=== PATIENT | female | born 1980 | race Caucasian/White ===

== ENCOUNTER → 2023-09-05 | Outpatient (CLI) | payer OTHER ==
[~2023-09-05] MED LIST: LEXA1TAB PO; OMEP-173 PO; SYNT50TA PO
== END ==
LOC: M WHC 08:39
PROVIDERS: ATTEND Plastic Surgery Surgery of the Hand
DX: Z12.31 Encounter for screening mammogram for malignant neoplasm of breast (principal); Q83.1 Accessory breast
CPT/HCPCS: 77066; G0279

== ENCOUNTER 2023-09-10 06:06 | Day surgery (SDC) | payer OTHER ==
[~2023-09-10] VITALS: Ht 165.1 cm; Wt 72.1 kg
[2023-09-10] MEDS ORDERED: LR 1,000 ML IV SCH (06:25)
[2023-09-10] MEDS ORDERED: propofoL 200 MG/20 ML VIAL As Ordered ONE (07:24)
[2023-09-10] MEDS ORDERED: LIDOCAINE 2% 100MG/5ML SDV (FOR ANES.) As Ordered ONE (07:24)
[2023-09-10] MEDS ORDERED: MIDAZOLAM INJ 2MG/2ML VIAL As Ordered ONE (07:24)
[2023-09-10] MEDS ORDERED: fentaNYL 100 MCG/2 ML INJECTION As Ordered ONE (07:24)
[2023-09-10] MEDS ORDERED: ONDANSETRON 4MG 2ML VIAL As Ordered ONE (07:28)
[2023-09-10] MEDS ORDERED: ROCURONIUM BROMIDE 50MG/5ML VIAL As Ordered ONE (07:54)
[2023-09-10] MEDS ORDERED: SEVOFLURANE INHAL SOLN 250 ML BTL As Ordered ONE (08:03)
[2023-09-10] MEDS ORDERED: SUGAMMADEX SODIUM 500 MG/5 ML VIAL (BRIDION) As Ordered ONE (08:03)
[2023-09-10] MEDS ORDERED: LACRILUBE (AKWA TEARS) OPHTH OINT 3.5GM As Ordered ONE (08:03)
[2023-09-10] MEDS ORDERED: ACETAMINOPHEN 1000MG 100ML IV BAG As Ordered ONE (08:03)
[2023-09-10] MEDS: ceFAZolin SOD 2 GM in IV 1 EA IV ONE (08:07)
[2023-09-10] MEDS ORDERED: dexmedeTOMIDine (4MCG/ML)200MCG/50ML BTL (PRECEDEX) As Ordered ONE (08:34)
[2023-09-10] MEDS: GENTAMICIN SULF 80MG/2ML VIAL As Ordered ONE (08:41)
[2023-09-10] MEDS ORDERED: fentaNYL 100 MCG/2 ML INJECTION IV PRN (08:50)
[2023-09-10] MEDS ORDERED: MORPHINE 2 MG/ML 1ML VIAL IV PRN (08:50)
[2023-09-10] MEDS ORDERED: TRAM50TA2 PO (09:29)
[2023-09-10] MEDS: ONDANSETRON 4MG 2ML VIAL IV PRN (09:45)
[2023-09-10] MEDS: oxyCODONE 5MG TAB PO PRN (09:46)
[2023-09-10 11:00] VITALS: BP 121/73; TEMP 97.1; O2SAT 99
== END 2023-09-10 11:07 | disposition home or self-care (01) ==
LOC: M SDC 06:06
PROVIDERS: ATTEND Plastic Surgery Surgery of the Hand
DX: Q83.1 Accessory breast (principal); E03.9 Hypothyroidism, unspecified; K21.9 Gastro-esophageal reflux disease without esophagitis; Z79.899 Other long term (current) drug therapy
CPT/HCPCS: 19120; 81025; 88302; C9290; J0131; J0665; J0690; J1100; J1580; J2250; J2405; J3010